=== PATIENT | female | born 1965 | race Two or more races ===

== ENCOUNTER 2021-07-29 08:30 | Outpatient (CLI) | payer OTHER | END 2021-07-29 08:45 | disposition home or self-care (01) | LOC: PPH VACUNA 08:30 | PROVIDERS: ATTEND Emergency Medicine Pediatric Emergency Medicine | DX: Z23 Encounter for immunization (principal) ==

== ENCOUNTER 2021-08-19 08:00 | Outpatient (CLI) | payer OTHER | END 2021-08-19 08:30 | disposition home or self-care (01) | LOC: PPH VACUNA 08:00 | PROVIDERS: ATTEND Emergency Medicine Pediatric Emergency Medicine | DX: Z23 Encounter for immunization (principal) ==

== ENCOUNTER 2021-10-16 08:36 | Outpatient (CLI) | payer OTHER | END 2021-10-16 08:47 | disposition home or self-care (01) | LOC: MRI 08:36 | PROVIDERS: ATTEND Obstetrics & Gynecology Obstetrics | DX: R10.2 Pelvic and perineal pain (principal); D25.9 Leiomyoma of uterus, unspecified | CPT/HCPCS: 72196 ==